=== PATIENT | female | born 1960 | race Caucasian/White ===

== ENCOUNTER 2019-02-13 12:21 | Day surgery (SDC) | payer MEDICARE, OTHER ==
[~2019-02-13] VITALS: Ht 160 cm; Wt 105.3 kg
[~2019-02-13 12:21] MED LIST: ALBU90OI61 INH; ALPR.5 PO; Cyclobenzaprine5 MG PO; Estradiol0.5 MG PO; IBUP800 PO; PAXIL40 MG PO; ZYRTEC10 M1 PO
--- NOTE | 2019-02-13 13:16 | NUR ---
02/13/19 1316 Manjula Jamil PREOP TEACHING COMPLETED AT THIS TIME.
--- NOTE | 2019-02-13 14:04 | NUR ---
02/13/19 1404 Manjlua Jamil 1ML INDIGO CARMINE WITH 10ML NORMAL SALINE INJECTED INTO CECUM FOR POLYPECTOMY
== END 2019-02-13 14:41 | disposition home or self-care (01) ==
LOC: ORSCSDS 12:21
PROVIDERS: Internal Medicine Gastroenterology
PROC: 0DBM8ZX Excision of Descending Colon, Via Natural or Artificial Opening Endoscopic, Diagnostic (ICD-10-PCS; principal; 2019-02-13 13:45)
PROC: 0DBN8ZX Excision of Sigmoid Colon, Via Natural or Artificial Opening Endoscopic, Diagnostic (ICD-10-PCS; principal; 2019-02-13 13:45)
PROC: 0DBH8ZX Excision of Cecum, Via Natural or Artificial Opening Endoscopic, Diagnostic (ICD-10-PCS; principal; 2019-02-13 13:45)
PROC: 3E0H8GC Introduction of Other Therapeutic Substance into Lower GI, Via Natural or Artificial Opening Endoscopic (ICD-10-PCS; principal; 2019-02-13 13:45)
DX: Z12.11 Encounter for screening for malignant neoplasm of colon (principal); Z83.71 Family history of colonic polyps; D12.0 Benign neoplasm of cecum; D12.4 Benign neoplasm of descending colon; K63.5 Polyp of colon; E66.01 Morbid (severe) obesity due to excess calories; Z68.41 Body mass index [BMI] 40.0-44.9, adult; G47.33 Obstructive sleep apnea (adult) (pediatric)
CPT/HCPCS: 88305; J7120

== ENCOUNTER 2019-06-26 13:21 | Day surgery (SDC) | payer MEDICARE, OTHER ==
[~2019-06-26] VITALS: Ht 160 cm; Wt 105.4 kg
--- NOTE | 2019-06-26 14:20 | NUR ---
06/26/19 1420 Amanda Albert 1 IV MISS IN RH BY ANGELLA VALVE 1 GOOD IV IN RAC BY ANGELLA PT TOW
== END 2019-06-26 15:45 | disposition home or self-care (01) ==
LOC: ORSCSDS 13:21
PROVIDERS: Internal Medicine Gastroenterology
PROC: 0DJD8ZZ Inspection of Lower Intestinal Tract, Via Natural or Artificial Opening Endoscopic (ICD-10-PCS; principal; 2019-06-26 14:45)
DX: Z86.010 Personal history of colon polyps (principal); Z12.11 Encounter for screening for malignant neoplasm of colon; Z83.71 Family history of colonic polyps; F41.9 Anxiety disorder, unspecified; G47.33 Obstructive sleep apnea (adult) (pediatric); D64.9 Anemia, unspecified; E66.9 Obesity, unspecified; Z68.41 Body mass index [BMI] 40.0-44.9, adult; Z79.899 Other long term (current) drug therapy
CPT/HCPCS: J2704; J7120

== ENCOUNTER → 2020-09-03 | Outpatient (CLI) | payer MEDICARE, OTHER | END | disposition home or self-care (01) | LOC: LAB SHORT 11:53 → LAB EV 11:53 | DX: R06.02 Shortness of breath (principal); Z20.828 Contact with and (suspected) exposure to other viral communicable diseases | CPT/HCPCS: U0003 ==

== ENCOUNTER 2021-11-09 15:54 | Emergency (ER) | payer MEDICARE, OTHER ==
[~2021-11-09] VITALS: Ht 160 cm; Wt 108.9 kg
== END 2021-11-09 17:30 | disposition home or self-care (01) ==
LOC: ER 15:54
DX: M79.662 Pain in left lower leg (principal); Z88.0 Allergy status to penicillin; Z88.8 Allergy status to other drugs, medicaments and biological substances
CPT/HCPCS: 93971; 99283-25

== ENCOUNTER 2022-08-29 13:01 | Emergency (ER) | payer MEDICARE, OTHER ==
[~2022-08-29] VITALS: Ht 160 cm; Wt 99.8 kg
[2022-08-29] MEDS ORDERED: LIDO700A20 TOP (13:11)
[2022-08-29] MEDS ORDERED: Percocet 5-3251 EACH PO (13:11)
[2022-08-29] MEDS ORDERED: VALACYCLOVIR1000 MG PO (13:11)
== END 2022-08-29 13:16 | disposition home or self-care (01) ==
LOC: ER 13:01
DX: B02.9 Zoster without complications (principal); Z88.0 Allergy status to penicillin; Z88.1 Allergy status to other antibiotic agents; Z79.899 Other long term (current) drug therapy
CPT/HCPCS: 99282

== ENCOUNTER → 2022-09-22 | Outpatient (CLI) | payer MEDICARE, OTHER ==
[~2022-09-22] MED LIST changes: +LIDO700A20 TOP; +Percocet 5-3251 EACH PO; +VALACYCLOVIR1000 MG PO
[2022-09-22 16:13] LABS: BASOPHILS ABSOLUTE AUTO 0.09 K/mm3 (0.00-0.23); BASOPHILS PERCENT AUTO 1 % (0-2); EOSINOPHILS ABSOLUTE AUTO 0.52 K/mm3 (0.00-0.68); EOSINOPHILS PERCENT AUTO 7 % (0-6); Hematocrit 38.8 % (33.0-51.0); Hemoglobin 13.1 g/dL (11.5-16.0); IMMATURE GRAN ABSOLUTE AUTO 0.02 K/mm3 (0.00-0.10); IMMATURE GRAN PERCENT AUTO 0 % (0-1); LYMPHOCYTES ABSOLUTE AUTO 2.43 K/mm3 (0.84-5.20); LYMPHOCYTES PERCENT AUTO 31 % (21-46); MONOCYTES ABSOLUTE AUTO 0.55 K/mm3 (0.16-1.47); MONOCYTES PERCENT AUTO 7 % (4-13); Mean Corpuscular HGB 29.7 pg (26.0-34.0); Mean Corpuscular HGB Conc 33.8 g/dL (31.5-36.5); Mean Corpuscular Volume 88 fL (80-100); Mean Platelet Volume 10.2 fL (9.1-12.4); NEUTROPHILS ABSOLUTE AUTO 4.36 K/mm3 (1.96-9.15); NEUTROPHILS PERCENT AUTO 55 % (41-73); Platelet Count 293 K/mm3 (150-400); RDW Coefficient Variation 14.3 % (11.7-14.2); RDW Standard Deviation 45.9 fL (35.1-46.3); Red Blood Cell Count 4.41 M/mm3 (3.80-5.20); White Blood Cell Count 7.97 K/mm3 (4.00-11.30)
[2022-09-23 09:42] LABS: Test Name 50641
== END | disposition home or self-care (01) ==
LOC: LAB 16:08 → LAB SHORT 16:08
PROVIDERS: Physician Assistant
DX: R21 Rash and other nonspecific skin eruption (principal)
CPT/HCPCS: 85025; 86695; 86696

== ENCOUNTER → 2022-10-18 | Outpatient (CLI) | payer MEDICARE, OTHER ==
[2022-10-18 14:52] LABS: BASOPHILS ABSOLUTE AUTO 0.06 K/mm3 (0.00-0.23); BASOPHILS PERCENT AUTO 1 % (0-2); EOSINOPHILS ABSOLUTE AUTO 0.19 K/mm3 (0.00-0.68); EOSINOPHILS PERCENT AUTO 3 % (0-6); Hematocrit 38.4 % (33.0-51.0); Hemoglobin 12.8 g/dL (11.5-16.0); IMMATURE GRAN ABSOLUTE AUTO 0.02 K/mm3 (0.00-0.10); IMMATURE GRAN PERCENT AUTO 0 % (0-1); LYMPHOCYTES ABSOLUTE AUTO 2.16 K/mm3 (0.84-5.20); LYMPHOCYTES PERCENT AUTO 39 % (21-46); MONOCYTES ABSOLUTE AUTO 0.32 K/mm3 (0.16-1.47); MONOCYTES PERCENT AUTO 6 % (4-13); Mean Corpuscular HGB 29.4 pg (26.0-34.0); Mean Corpuscular HGB Conc 33.3 g/dL (31.5-36.5); Mean Corpuscular Volume 88 fL (80-100); Mean Platelet Volume 10.1 fL (9.1-12.4); NEUTROPHILS ABSOLUTE AUTO 2.79 K/mm3 (1.96-9.15); NEUTROPHILS PERCENT AUTO 50 % (41-73); Platelet Count 297 K/mm3 (150-400); Red Blood Cell Count 4.36 M/mm3 (3.80-5.20); White Blood Cell Count 5.54 K/mm3 (4.00-11.30)
[2022-10-18 15:12] LABS: Albumin, Blood 3.6 g/dL (3.4-5.0); Albumin/Globulin Ratio 0.9 (0.8-1.8); Bilirubin, Total 0.4 mg/dL (0.1-1.0); Bun/Creatinine Ratio 18.1 (12.0-20.0); Calcium, Blood 8.7 mg/dL (8.5-10.1); Creatinine, Blood 0.83 mg/dL (0.40-1.00); Free Thyroxine 1.09 ng/dL (0.70-1.60); Globulin, Blood 4.1 g/dL (2.2-4.0); Potassium, Blood 3.8 mmol/L (3.5-5.5); Thyroid Stimulating Hormone 1.962 uIU/mL (0.360-4.800); Total Protein, Blood 7.7 g/dL (6.4-8.2)
== END | disposition home or self-care (01) ==
LOC: LAB 14:48 → LAB SHORT 14:48
PROVIDERS: General Practice
DX: R53.83 Other fatigue (principal)
CPT/HCPCS: 80053; 84439; 84443; 85025; 85651

== ENCOUNTER → 2023-03-09 | Outpatient (CLI) | payer MEDICARE, BC | LOC: LAB SHORT 08:19 → PLD 08:19 | DX: D48.5 Neoplasm of uncertain behavior of skin (principal) | CPT/HCPCS: 88305 ==

== ENCOUNTER → 2023-12-24 | Outpatient (CLI) | payer OTHER | END | disposition home or self-care (01) | LOC: LAB SHORT 17:44 → LAB 17:44 | DX: R31.29 Other microscopic hematuria (principal) | CPT/HCPCS: 87086 ==

== ENCOUNTER → 2024-09-04 | Outpatient (CLI) | payer OTHER | END | disposition home or self-care (01) | LOC: LAB SHORT 08:13 → LAB 08:13 | DX: M35.01 Sjogren syndrome with keratoconjunctivitis (principal) | CPT/HCPCS: 88305 ==

== ENCOUNTER 2025-02-20 07:05 | Day surgery (SDC) | payer OTHER ==
[~2025-02-20] VITALS: Ht 160 cm; Wt 95.9 kg
[~2025-02-20 07:05] MED LIST changes: +DESV50 PO; +Lactated Ringer's 1,000 ML IV SCH; +PARO30 PO; -PAXIL40 MG PO
[2025-02-20 07:38] VITALS: BP 166/94
--- NOTE | 2025-02-20 07:49 | NUR ---
Ambulatory in Day Surgery History, Chart, Medications and Allergies reviewed before start of procedure. Pre-Op teaching done. Pt verbalizes understanding. Patient States Post-Procedure ride home has been arranged.
[2025-02-20] MEDS ORDERED: Artificial Tear Opth Oint 3.5 GM ONE (08:21)
[2025-02-20] MEDS ORDERED: propofoL 40 ML IV ONE (08:24)
--- NOTE | 2025-02-20 08:34 | NUR ---
02/20/25 0834 Og Murcia MONITOR INTACT WITH CONTINUOUS PULSE OXIMETRY, CONTINUOUS END TITAL CO2, 3-LEAD EKG AND INTERMITTENT BLOOD PRESSURE. ANESTHESIA PER DR. LINDQUIST
--- NOTE | 2025-02-20 09:00 | NUR ---
DR NICOLE AT BEDSIDE GIVING PATIENT'S RESULTS.
[2025-02-20 09:01] VITALS: BP 92/77
[2025-02-20 09:09] VITALS: BP 122/71
--- NOTE | 2025-02-20 09:19 | NUR ---
Discharge instructions reviewed with patient. Patient verbalizes understanding. Copy given to patient to take home. Up to dress with steady gait. Denies pain. Tolerating sips of water. Ride arranged with significant other, Thomas.
== END 2025-02-20 09:21 | disposition home or self-care (01) ==
LOC: ORSCMMR 07:05 → ORD 08:30 → ORSCMMR 09:21
PROVIDERS: Internal Medicine Gastroenterology
PROC: 0DBM8ZX Excision of Descending Colon, Via Natural or Artificial Opening Endoscopic, Diagnostic (ICD-10-PCS; principal; 2025-02-20 08:30)
DX: Z12.11 Encounter for screening for malignant neoplasm of colon (principal); Z86.0101 Personal history of adenomatous and serrated colon polyps; K63.5 Polyp of colon; K64.8 Other hemorrhoids; G47.33 Obstructive sleep apnea (adult) (pediatric); F32.A Depression, unspecified; F41.9 Anxiety disorder, unspecified; Z79.899 Other long term (current) drug therapy
CPT/HCPCS: 88305; A9270; J2704; J7120

== ENCOUNTER 2025-11-19 08:38 | Day surgery (SDC) | payer OTHER ==
[~2025-11-19] VITALS: Ht 160 cm; Wt 100.1 kg
[~2025-11-19 08:38] MED LIST changes: -Lactated Ringer's 1,000 ML IV SCH
[2025-11-19] MEDS ORDERED: NS 500 ML IV ONE ×2 (08:47→09:03)
[2025-11-19] MEDS ORDERED: CeFAZolin Sodium 2,000 MG VIAL ONE (08:47)
[2025-11-19] MEDS ORDERED: IBUP800 (08:53)
[2025-11-19] MEDS ORDERED: TIZANIDINE HCL213 (08:53)
--- NOTE | 2025-11-19 09:06 | NUR ---
11/19/25 0906 Demetria Berumen PT HAD LOCAL INJECTION OF LEFT HAND IN PREOP MIS OF 9ML 1% LIDOCAINE W/EPI 1:100,000 W/ 1ML SOD BICARB TOTAL 5ML IN INJECTED
[2025-11-19 09:45] VITALS: BP 106/57
== END 2025-11-19 10:12 | disposition home or self-care (01) ==
LOC: ORSCSDS 08:38
PROVIDERS: Orthopaedic Surgery
PROC: 0LN80ZZ Release Left Hand Tendon, Open Approach (ICD-10-PCS; principal; 2025-11-19 10:00)
DX: M65.332 Trigger finger, left middle finger (principal); F41.9 Anxiety disorder, unspecified; F32.A Depression, unspecified; M79.7 Fibromyalgia; E07.9 Disorder of thyroid, unspecified; M35.00 Sjogren syndrome, unspecified; Z79.899 Other long term (current) drug therapy
CPT/HCPCS: J0690; J2704; J7040